=== PATIENT | female | born 2005 | race Two or more races ===

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

== ENCOUNTER 2024-11-17 18:11 | Emergency (ER) | payer MEDICAID ==
[~2024-11-17] VITALS: Ht 152.4 cm; Wt 85.0 kg
[~2024-11-17 18:11] MED LIST changes: +ONDA-243 PO; -ONDA4TAB12 PO; +VALA500T41 PO
[2024-11-17 18:19] VITALS: TEMP 97.7
[2024-11-17 18:47] LABS: BASOPHILS % (AUTO) 0.4 % (0-1); EOSINOPHILS # (AUTO) 0.1 X10'3 (0-0.9); EOSINOPHILS % (AUTO) 1.1 % (0-6); HEMATOCRIT 44.8 % (35.0-45.0); HEMOGLOBIN 15.2 g/dl (12.0-16.0); LYMPHOCYTES # (AUTO) 2.6 X10'3 (1.1-4.8); LYMPHOCYTES % (AUTO) 25.9 % (21-51); MEAN CORPUSCULAR HEMOGLOBIN 30.8 PG (27.0-31.0); MEAN CORPUSCULAR HGB CONC 33.9 g/dL (33.0-36.5); MEAN CORPUSCULAR VOLUME 90.8 FL (78-98); MONOCYTES # (AUTO) 0.6 X10'3 (0-0.9); MONOCYTES % (AUTO) 5.5 % (2-12); NEUTROPHILS # (AUTO) 6.7 X10'3 (1.8-7.7); NEUTROPHILS % (AUTO) 67.1 % (42-75); PLATELET COUNT 294 X10'3 (140-440); RED BLOOD COUNT 4.93 X10'6 (4.20-5.60); RED CELL DISTRIBUTION WIDTH 13.5 % (11.5-14.5)
[2024-11-17 18:49] LABS: BILIRUBIN,URINE NEGATIVE (Neg); CLARITY,URINE SLIGHTLY CLOUDY (Clear); COLOR,URINE YELLOW (Yellow); GLUCOSE, URINE NEGATIVE (Neg); KETONES,URINE 15 mg/dl (Neg); LEUKOCYTE ESTERASE ,URINE NEGATIVE (Neg); NITRITES, URINE NEGATIVE (Neg); OCCULT BLOOD,URINE NEGATIVE (Neg); PROTEIN,URINE NEGATIVE (Neg)
[2024-11-17 18:50] LABS: URINE HCG NEGATIVE (NEG)
[2024-11-17 18:56] LABS: UA COLLECTION TYPE CLN CATCH MIDSTREAM
[2024-11-17 18:58] LABS: BACTERIA,URINE 2+ /HPF (Neg); MUCUS STRANDS FEW /LPF (Neg); RBC,URINE NONE SEEN /HPF (0-2); SQUAMOUS EPITHELIAL CELL,UR MANY /LPF (FEW); WBC,URINE 0-4 /HPF (0-4)
[2024-11-17 19:11] LABS: ALANINE AMINOTRANSFERASE 70 U/L (12-78); ALBUMIN 4.3 G/DL (3.4-5.0); ALBUMIN/GLOBULIN RATIO 0.9 (1.1-1.5); ALKALINE PHOSPHATASE 79 IU/L (46-116); ANION GAP 10 (8-16); ASPARTATE AMINO TRANSFERASE 30 U/L (10-37); BLOOD UREA NITROGEN 10 MG/DL (7-18); BUN/CREATININE RATIO 10.6 (10.0-20.0); CALCIUM 9.1 MG/DL (8.5-10.1); CHLORIDE 106 MMOL/L (99-107); CREATININE 0.94 MG/DL (0.40-0.90); GLUCOSE 112 MG/DL (70-104); LIPASE 36 U/L (16-77); POTASSIUM 3.8 MMOL/L (3.5-5.1); SODIUM 141 MMOL/L (135-145); TOTAL CARBON DIOXIDE 24.7 MMOL/L (24-32); TOTAL PROTEIN 9.3 G/DL (6.4-8.2); eCRCL 68 ML/MIN; eGFR 75 ML/MIN
[2024-11-17] MEDS ORDERED: CEPH-585 PO (19:27)
[2024-11-17 19:38] VITALS: BP 111/71; PULSE 89; RESP 16; O2SAT 99
== END 2024-11-17 19:40 | disposition home or self-care (01) ==
LOC: ER 18:12
DX: S61.211A Laceration without foreign body of left index finger without damage to nail, initial encounter (principal); G89.11 Acute pain due to trauma; L03.012 Cellulitis of left finger; X58.XXXA Exposure to other specified factors, initial encounter; Y93.89 Activity, other specified; Y92.89 Other specified places as the place of occurrence of the external cause; Y99.8 Other external cause status
CPT/HCPCS: 36415; 80053; 81001; 81025; 83690; 85025; 99283

== ENCOUNTER 2024-12-02 16:06 | Emergency (ER) | payer MEDICAID ==
[~2024-12-02] VITALS: Ht 152.4 cm; Wt 69.1 kg
[2024-12-02 16:19] VITALS: BP 144/94; PULSE 102; RESP 16; O2SAT 98
[2024-12-02] MEDS ORDERED: VALA500T41 PO (18:28)
[2024-12-02 19:05] VITALS: TEMP 98.8
[2024-12-02] MEDS: valacyclovir 500mg tablet PO STA (19:19)
== END 2024-12-02 19:23 | disposition home or self-care (01) ==
LOC: ER 16:07
DX: A60.09 Herpesviral infection of other urogenital tract (principal)
CPT/HCPCS: 99283

== ENCOUNTER 2025-02-26 12:19 | Emergency (ER) | payer MEDICAID ==
[~2025-02-26] VITALS: Ht 152.4 cm; Wt 83.1 kg
[2025-02-26 12:49] LABS: BILIRUBIN,URINE NEGATIVE (Neg); CLARITY,URINE CLOUDY (Clear); GLUCOSE, URINE NEGATIVE (Neg); KETONES,URINE NEGATIVE (Neg); LEUKOCYTE ESTERASE ,URINE NEGATIVE (Neg); NITRITES, URINE NEGATIVE (Neg); OCCULT BLOOD,URINE LARGE (Neg); PH,URINE 6.5 (4.8-8.0); PROTEIN,URINE TRACE mg/dl (Neg); URINE HCG POSITIVE (NEG); UROBILINOGEN,URINE 0.2 E.U/dL (0.2-1.0)
[2025-02-26 12:50] LABS: COLOR,URINE PINK (Yellow); UA COLLECTION TYPE CLN CATCH MIDSTREAM
[2025-02-26 12:55] LABS: BACTERIA,URINE FEW /HPF (Neg); MUCUS STRANDS FEW /LPF (Neg); RBC,URINE TNTC /HPF (0-2); SQUAMOUS EPITHELIAL CELL,UR FEW /LPF (FEW); WBC,URINE 0-4 /HPF (0-4)
[2025-02-26 13:49] LABS: BASOPHILS % (AUTO) 0.3 % (0-1); EOSINOPHILS % (AUTO) 0.2 % (0-6); HEMATOCRIT 40.1 % (35.0-45.0); HEMOGLOBIN 13.5 g/dl (12.0-16.0); LYMPHOCYTES # (AUTO) 1.5 X10'3 (1.1-4.8); MEAN CORPUSCULAR HEMOGLOBIN 30.3 PG (27.0-31.0); MEAN CORPUSCULAR HGB CONC 33.7 g/dL (33.0-36.5); MEAN PLATELET VOLUME 9.9 FL (7.4-10.4); MONOCYTES # (AUTO) 0.4 X10'3 (0-0.9); MONOCYTES % (AUTO) 3.4 % (2-12); NEUTROPHILS # (AUTO) 9.7 X10'3 (1.8-7.7); NEUTROPHILS % (AUTO) 83.1 % (42-75); PLATELET COUNT 251 X10'3 (140-440); RED BLOOD COUNT 4.46 X10'6 (4.20-5.60); RED CELL DISTRIBUTION WIDTH 13.2 % (11.5-14.5); WHITE BLOOD COUNT 11.7 X10'3 (4.5-11.0)
[2025-02-26 13:54] LABS: APTT 26 SECONDS (22-32); INR 1.1 INR; PROTHROMBIN TIME 11.4 SECONDS (9.0-12.0)
[2025-02-26] MEDS: acetaminophen 325mg tablet PO ONE (14:08)
[2025-02-26] MEDS: ondansetron 4mg rapidly disintigrating tab PO STA (14:20)
[2025-02-26 14:26] LABS: ALBUMIN 3.8 G/DL (3.4-5.0); ANION GAP 9 (8-16); BLOOD UREA NITROGEN 6 MG/DL (7-18); BUN/CREATININE RATIO 9.5 (10.0-20.0); CALCIUM 8.9 MG/DL (8.5-10.1); CHLORIDE 106 MMOL/L (99-107); CREATININE 0.63 MG/DL (0.40-0.90); GLUCOSE 113 MG/DL (70-104); POTASSIUM 4.6 MMOL/L (3.5-5.1); SODIUM 140 MMOL/L (135-145); TOTAL CARBON DIOXIDE 24.9 MMOL/L (24-32); eCRCL 101 ML/MIN; eGFR > 90 ML/MIN
[2025-02-26 14:27] LABS: BETA HCG,QUANTITATIVE 1681 mIU/ml
[2025-02-26] MEDS: ketorolac trometh 30MG/ML vial 30 MG/ML VIAL IM STA (14:32)
[2025-02-26 14:33] LABS: URINE AMPHETAMINE SCREEN NEGATIVE (Neg); URINE BARBITUATE SCREEN NEGATIVE (Neg); URINE BENZODIAZEPINES SCREEN NEGATIVE (Neg); URINE CANNABINOID SCREEN POSITIVE (Neg); URINE COCAINE SCREEN NEGATIVE (Neg); URINE METHADONE SCREEN NEGATIVE (Neg); URINE OPIATE SCREEN NEGATIVE (Neg); URINE PHENCYCLIDINE SCREEN NEGATIVE (Neg)
[2025-02-26] MEDS ORDERED: IBUP-1985 PO (14:55)
[2025-02-26 15:08] VITALS: BP 143/77; PULSE 84; RESP 16; TEMP 97.7; O2SAT 99
== END 2025-02-26 15:10 | disposition home or self-care (01) ==
LOC: ER 12:19
DX: O03.9 Complete or unspecified spontaneous abortion without complication (principal); Z3A.28 28 weeks gestation of pregnancy
CPT/HCPCS: 36415; 76801; 80048; 80305; 81001; 81025; 84702; 85025; 85610; 85730; 86885; 86900; 86901; 96372; 99285; J1885; A6258